=== PATIENT | female | born 2005 | race Caucasian/White ===

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

== ENCOUNTER 2025-01-25 10:11 | Emergency (ER) | payer MEDICAID ==
[~2025-01-25] VITALS: Ht 167.6 cm; Wt 75.2 kg
[2025-01-25 10:19] VITALS: TEMP 98
[2025-01-25 10:35] LABS: MEAN PLATELET VOLUME 6.9 FL (7.4-10.4); RED CELL DISTRIBUTION WIDTH 13.1 % (11.5-14.5)
[2025-01-25 10:51] LABS: CREATININE 0.84 MG/DL (0.40-0.90); TOTAL CARBON DIOXIDE 24.7 MMOL/L (24-32); eCRCL 100 ML/MIN; eGFR 86 ML/MIN
[2025-01-25 12:24] LABS: LEUKOCYTE ESTERASE ,URINE NEGATIVE (Neg); NITRITES, URINE NEGATIVE (Neg); OCCULT BLOOD,URINE LARGE (Neg)
[2025-01-25 12:25] LABS: UA COLLECTION TYPE VOIDED; URINE HCG NEGATIVE (NEG)
[2025-01-25 12:49] LABS: MUCUS STRANDS FEW /LPF (Neg); SQUAMOUS EPITHELIAL CELL,UR MODERATE /LPF (FEW)
[2025-01-25 12:52] LABS: AMORPHOUS PHOSPHATES 2+
--- NOTE | 2025-01-25 13:27 | Physician Documentation ---
History of Present Illness ~ Chief Complaint: Vaginal Bleeding Stated Complaint: PELVIC PAIN Time Seen by MD: :25 OK to notify your PCP?: Yes Source: patient, RN/MD, RN notes reviewed, old records Mode of Arrival: POV Exam Limitations: no limitations HPI 20 year old female with history of menorrhagia seen in bed 09 presents to the emergency department complaining of pain. She states she had an IUD placed recently and this is her first menstrual cycle since having it placed. She complains of nausea and vomiting all night long due to pain from her Copper IUD that she had placed at the [facility] on [address] on 01/06. She states that she is having pain when breathing and that it radiates from her abdomen down her legs. Patient denies any other associated symptoms at this time. Patient denies any other alleviating or exacerbating factors. Last Menstrual Period: Jan 23, 2025 Medication Reconciliation Allergies: Coded Allergies: No Known Allergies (Unverified , 09/09/24) Scheduled Norgestimate-Ethinyl Estradiol (Sprintec 28 Day Tablet), 1 TAB PO DAILY Past Medical History Past Medical History: No Pertinent History Past Surgical History: no surgical history Last Menstrual Period: Jan 23, 2025 Smoking Status: Never smoker Alcohol Use: None Drug Use: none Review of Systems All Other Systems at this time: Reviewed and Negative ROS As stated above in the HPI, otherwise all systems are reviewed and negative. Physical Exam Vital Signs: RN Vital Signs have been reviewed: Yes, Temperature: 98.0, Source: Temporal, Heart Rate: 88, Respiratory Rate: 18, BP: 117/72, Pulse Oximetry: 99, Weight: 75.250 Oxygen Flow Rate: 0 Pulse Oximetry Reflects: adequate oxygenation Physical Exam General: The patient is well developed, well nourished, nontoxic appearing and is in no acute distress. Skin: [place], warm and dry with no rashes. HEENT: Head was normocephalic and atraumatic. Eyes - pupils equal, round, reactive to light and accommodation. Extraocular movements were intact. Conjunctivae were nonicteric. Ears - bilateral tympanic membranes were normal. The mouth and oropharynx were clear with moist mucous membranes. There were no pharyngeal exudates or erythema. Neck: Supple and nontender. There was no jugular venous distention, lymphadenopathy, thyromegaly or masses. Chest: Clear to auscultation bilaterally without wheezes, rales or rhonchi. No accessory muscle use. No dullness to percussion. Heart: Rate regular and rhythmic. S1, S2. No murmurs. Palpation of the chest wall was normal. No rubs or thrills. Abdomen: Diffuse abdominal pain in all quadrants. Positive bowel sounds. No guarding or rebound. No hepatosplenomegaly or palpable masses. Extremities: No cyanosis, clubbing or edema. The patient moves all extremities. Pulses were equal and symmetric. Neurologic: Cranial nerves II-XII were intact. Sensation was intact to light touch throughout. Motor strength was 5/5 in all four extremities. Deep tendon reflexes were intact in both upper and lower extremities. Psychologic: The patient was oriented to person, place and time. The patient demonstrated appropriate judgement and insight. Procedures Procedures Procedure by Dr. Jef Alvarado Ob Ultrasound Date: Jan 26, 2025 Progress Progress Note 2946: The case was discussed with Dr. Alvarado the [employer] architect who recommended the IUD be pulled out 1 cm. Results/Orders Reviewed/noted all lab results: Yes Results/Orders Orders - GRANT ALVARADO MD Cult Urine + [place] [address] (01/25/25 12:53) Ct Abdomen Pelvis (01/25/25 14:30) Completed Orders - GRANT ALVARADO MD Hcg, Ur Ql (01/25/25 10:20) Cbc/Diff (01/25/25 10:20) Lipase (01/25/25 10:20) CMP (01/25/25 10:20) Ua W/Microscopic, Cult If Ind (01/25/25 11:40) Morphine 2mg/Ml Inj. (Morphine Inj.) (01/25/25 13:45) Normal Saline 1000ml (Sodium Chloride 10 (01/25/25 13:45) Ct Abdomen Pelvis (01/25/25 14:30) Iohexol 300mg/Ml 100ml Inj. (Omnipaque-3 (01/25/25 13:52) Vital Signs 01/25/25 01/25/25 01/25/25 01/25/25 10:19 12:10 14:22 15:16 Temp 98.0 Pulse 88 80 Resp 18 16 16 B/P (MAP) 117/72 114/71 (85) Pulse Ox 99 98 O2 Flow Rate 0 0 01/25/25 01/25/25 16:40 17:18 Resp 16 16 Laboratory Tests Test 01/25/25 10:28 01/25/25 11:40 White Blood Count 5.8 Red Blood Count 4.35 Hemoglobin 13.1 Hematocrit 38.8 Mean Corpuscular Volume 89.2 Mean Corpuscular Hemoglobin 30.2 Mean Corpuscular Hemoglobin Concent 33.8 Red Cell Distribution Width 13.1 Platelet Count 254 Mean Platelet Volume 6.9 L Neutrophils (%) (Auto) 76.7 H Lymphocytes (%) (Auto) 17.8 L Monocytes (%) (Auto) 4.8 Eosinophils (%) (Auto) 0.6 Basophils (%) (Auto) 0.1 Neutrophils # (Auto) 4.4 Lymphocytes # (Auto) 1.0 L Monocytes # (Auto) 0.3 Eosinophils # (Auto) 0.0 Basophils # (Auto) 0.0 CBC Comment Sodium Level 142 Potassium Level 4.1 Chloride Level 108 H Carbon Dioxide Level 24.7 Anion Gap 9 Blood Urea Nitrogen 8 Creatinine 0.84 Estimated GFR/1.73 m2 86 BUN/Creatinine Ratio 9.5 L Glucose Level 100 Calcium Level 9.0 Total Bilirubin 0.7 Aspartate Amino Transf (AST/SGOT) 17 Alanine Aminotransferase (ALT/SGPT) 20 Alkaline Phosphatase 78 Total Protein 7.6 Albumin 4.1 Globulin 3.5 Albumin/Globulin Ratio 1.2 Lipase 14 L Chemistry Comments Urine Specimen Description Voided Urine Color Yellow Urine Clarity Cloudy Urine pH 8.5 Urine Specific [place] 1.015 Urine Protein Trace Urine Glucose (UA) Negative Urine Ketones Negative Urine Occult Blood Large H Urine Nitrite Negative Urine Bilirubin Negative Urine Urobilinogen 1.0 Urine Leukocyte Esterase Negative Urine RBC 20-50 Urine WBC 5-10 H Urine Squamous Epithelial Cells Moderate Urine Transitional Epithelial Cells Few Urine Amorphous Phosphates 2+ Urine Bacteria Few Urine Mucus Few Urine Culture Indicated Indicated Volume Urine Centrifuged 10 ml Urine HCG, Qualitative Negative Urine Comment Microbiology Date/Time Source Procedure Growth Status 01/25/25 12:53 Urine Voided Urine Culture - Preliminary Culture received. Resulted Re-Evaluation Re-Evaluation : Re-Evaluation: Improved Progress Patient was seen and examined. Patient was given reassurance. Patient is having severe abdominal pain. Cat scan did not show any perforation of the uterine wall but did show some abnormal implantation of the IUD which was physically bent. Consultation with Ob was obtained. Patient had her IUD removed by 1 cm and there was immediate improvement in resolution of her symptoms. After brief period of observation patient was then discharged home to follow up with OB as needed on outpatient basis. No need for antibiotics at this time. Patient appears well. EKG/XRAY/CT/US/VASC/MRI CT : Impression Exam: CT CT ABDOMEN PELVIS W/ IV CONTRAST History: ABD PAIN, IUD vag pain and bleeding COMPARISON: None Technique: Multidetector spiral CT of the abdomen and pelvis was performed from lung bases to pubic symphysis. Intravenous contrast was administered during this examination. Portal venous imaging was obtained. Axial, coronal and sagittal multiplanar reformats were performed by the technologist on a separate workstation. Radiation Dose : Abdomen/Pelvis: CTDIvol 15 mGy, DLP 826 mGy*cm. CONTRAST: Type of contrast: Omni 300 Contrast injected: 100 mL Findings: Lung Bases: No acute or significant lung base finding. Normal heart size. No pleural or pericardial effusion. Liver: Suggestion of a mass in the left lobe of the liver measuring up to 73 mm with a central scar. Gallbladder and biliary Tree: Unremarkable Spleen: Unremarkable Pancreas: The pancreas is normal in appearance without focal lesions or abnormal enhancement. Adrenal Glands: Unremarkable Kidneys: Right lower pole renal calculus measuring up to 3 mm. No hydronephrosis. Bladder: Unremarkable Bowel: The stomach is grossly normal in appearance. Small bowel and colon are normal in caliber and distribution. Normal appendix is visualized in the right lower quadrant without findings of appendicitis. Ascites: Small amount of free fluid in the pelvis. Lymphadenopathy: No mesenteric, retroperitoneal or periportal lymphadenopathy. Abdominal wall and Mesentery: Unremarkable. Vasculature: The visualized abdominal aorta is normal in size and caliber. Abdominal and pelvic vessels demonstrate normal enhancement. Pelvic Organs: Intrauterine device appears malpositioned with a bent limb. Possible ovarian cysts. Musculoskeletal: No aggressive focal bony lesions, acute fractures or dislocation. IMPRESSION: 1. Malpositioned intrauterine device with a bent limb. Removal and possible replacement is recommended. Free fluid in the pelvis could be physiologic. Does not appear high density. Possible ovarian cysts. Consider further evaluation with pelvic ultrasound. 2. Suggestion of a large left hepatic mass, possibly an FNH. Recommend further evaluation with MRI of the abdomen with contrast. 3. Nonobstructive right lower pole renal calculus. Radiation optimization: All CT scans at this facility use at least one of these dose optimization techniques: Automated exposure control mA and/or kV adjustment per patient size (includes targeted exams where dose is matched to clinical indication) or iterative reconstruction. HS:Y Electronically Signed by:HIPOLITO SONG MD Date & Time: 01/25/25 1515 Medical Decision Making Additional info obtained from: old records Genital Diff Dx:Considerations: Include: Cervicitis, Ectopic , Foreign body, Intrauterine , Menorrhagia, Menometrorrhagia, Menstrual bleeding, Physiologic discharge, , Trauma, UTI, Vaginitis(osis)-Atrophic, Vaginitis, Vaginitis(osis)-Bacterial, Vaginitis(osis)-Candidal, Vaginitis(osis)- Contact, Vaginitis(osis)-Herpes, Vaginitis(osis)-Trich., Other Departure Time of Disposition: 17:18 Disposition: 01 HOME / SELF CARE / HOMELESS Impression: Primary Impression: IUD misplacement Additional Impression: Abdominal pain Qualified Codes: R10.30 - Lower abdominal pain, unspecified Condition: Stable Discharge Instructions: Abdominal Pain, Adult, [id number] Referrals: NO PRIMARY CARE PROVIDER (PCP) Education Educated: Patient Educated regarding: diagnosis, treatment, prognosis, need for follow up Signature Scribe Signature: Scribed for Grant Alvarado MD by Alfredo Love . 01/25/25 13:45 Attestation: The note accurately reflects work and decisions made by me.Grant Alvarado MD 01/25/25 13:26 GRANT ALVARADO MD Jan 25, 2025 13:27 ALFREDO GARCIA Jan 25, 2025 13:45
[2025-01-25] MEDS ORDERED: iohexol 300mg/ml 100ml inj. ONE (13:52)
[2025-01-25] MEDS: normal saline 1000ML IV soln IVB ONE (14:22)
[2025-01-25 15:16] VITALS: BP 114/71; PULSE 80; O2SAT 98
--- NOTE | 2025-01-25 15:17 | RADIOLOGY REPORT ---
Exam: CT CT ABDOMEN PELVIS W/ IV CONTRAST History: ABD PAIN, IUD vag pain and bleeding COMPARISON: None Technique: Multidetector spiral CT of the abdomen and pelvis was performed from lung bases to pubic symphysis. Intravenous contrast was administered during this examination. Portal venous imaging was obtained. Axial, coronal and sagittal multiplanar reformats were performed by the technologist on a separate workstation. Radiation Dose : Abdomen/Pelvis: CTDIvol 15 mGy, DLP 826 mGy*cm. CONTRAST: Type of contrast: Omni 300 Contrast injected: 100 mL Findings: Lung Bases: No acute or significant lung base finding. Normal heart size. No pleural or pericardial effusion. Liver: Suggestion of a mass in the left lobe of the liver measuring up to 73 mm with a central scar. Gallbladder and biliary Tree: Unremarkable Spleen: Unremarkable Pancreas: The pancreas is normal in appearance without focal lesions or abnormal enhancement. Adrenal Glands: Unremarkable Kidneys: Right lower pole renal calculus measuring up to 3 mm. No hydronephrosis. Bladder: Unremarkable Bowel: The stomach is grossly normal in appearance. Small bowel and colon are normal in caliber and d istribution. Normal appendix is visualized in the right lower quadrant without findings of appendicit is. Ascites: Small amount of free fluid in the pelvis. Lymphadenopathy: No mesenteric, retroperitoneal or periportal lymphadenopathy. Abdominal wall and Mesentery: Unremarkable. Vasculature: The visualized abdominal aorta is normal in size and caliber. Abdominal and pelvic vess els demonstrate normal enhancement. Pelvic Organs: Intrauterine device appears malpositioned with a bent limb. Possible ovarian cysts. Musculoskeletal: No aggressive focal bony lesions, acute fractures or dislocation. IMPRESSION: 1. Malpositioned intrauterine device with a bent limb. Removal and possible replacement is recommende d. Free fluid in the pelvis could be physiologic. Does not appear high density. Possible ovarian cy sts. Consider further evaluation with pelvic ultrasound. 2. Suggestion of a large left hepatic mass, possibly an FNH. Recommend further evaluation with MRI of the abdomen with contrast. 3. Nonobstructive right lower pole renal calculus. Radiation optimization: All CT scans at this facility use at least one of these dose optimization mirza hniques: Automated exposure control mA and/or kV adjustment per patient size (includes targeted exams where dose is matched to clinical indication) or iterative reconstruction. HS:Y
[2025-01-25 17:18] VITALS: RESP 16
--- NOTE | 2025-01-25 19:44 | PROGRESS NOTE ---
DATE: 01/25/2025 DICTATING PHYSICIAN: Fady Alvarado MD REQUESTING PHYSICIAN: Dr. Grant Alvarado. REASON FOR CONSULTATION: Cramping pain with a displaced IUD. HISTORY OF PRESENT ILLNESS: The patient is a 20-year-old, nulligravida female who presented to the ER with complaints of severe pelvic cramping pain and excessive vaginal bleeding. The patient reported she had an IUD placed a month ago, at which point, she had severe cramping pain, which diminished after a week or so. However, she states there was a persistent, low-grade cramping pain for the past three weeks which essentially never resolved. However, she recently started her menstrual flow, and the pain was severe enough that she came into the ER. PAST MEDICAL HISTORY: Noncontributory. PAST SURGICAL HISTORY: Noncontributory. OUTPATIENT MEDICATIONS: Denied other than her Paragard IUD. ALLERGIES: No known drug allergies. PHYSICAL EXAM: GENERAL: The patient is alert and oriented, in mild distress due to her cramping pain. VITAL SIGNS: Temperature is 98, respiratory rate of 16, blood pressure 114/71, pulse is 80, and saturating 98% on room air. SIGNIFICANT STUDIES: A CT scan performed in the ER showed a device within the uterus that appeared malpositioned. I discussed the probability with the patient that the IUD was traversing the uterine wall, hence the arm appeared displaced. The patient stated she would like to keep the IUD and did not desire removal of the IUD at this time. Hence, I recommended we retract the IUD slightly in hopes of removing it from the uterine wall to relieve her pain. The risks and benefits of the procedure were extensively discussed with the patient. The patient agreed to proceed. I was strapped around by the patient's nurse for the procedure. A sterile speculum was placed transvaginally. The IUD strings were visualized, and the IUD was retracted approximately 1 cm. The patient reported an initial, left-sided pain and subsequent complete resolution of her cramping pain. ASSESSMENT: A 20-year-old female with IUD traversing the wall causing severe cramping pain which resolved after slight retraction of the IUD. PLAN: The plan at this point is expectant management. The patient may be discharged home, as she is now pain free. The patient will follow up with her produce service team member, for which she is scheduled on 01/27. Fady Alvarado MD TID: [id number] RECEIPT: [id number] CINDY/OMAR
== END 2025-01-25 17:33 | disposition home or self-care (01) ==
LOC: ER 10:12
DX: T83.32XA Displacement of intrauterine contraceptive device, initial encounter (principal); Z79.899 Other long term (current) drug therapy; X58.XXXA Exposure to other specified factors, initial encounter; Y93.89 Activity, other specified; Y92.89 Other specified places as the place of occurrence of the external cause; Y99.8 Other external cause status
CPT/HCPCS: 36415; 74177; 80053; 81001; 81025; 83690; 85025; 87088; 96361; 96374; 96376; 99285; J2270; J7030; Q9967; A6449

== ENCOUNTER 2025-01-26 17:21 | Emergency (ER) | payer MEDICAID ==
[~2025-01-26] VITALS: Ht 167.6 cm; Wt 75.2 kg
[2025-01-26] MEDS: HYDROcodone/acetaminophen 10/325mg tab PO ONE (18:28)
--- NOTE | 2025-01-26 18:46 | Physician Documentation ---
History of Present Illness ~ Chief Complaint: Vaginal pain Stated Complaint: UTERUS PAIN Time Seen by MD: 18:05 Mode of Arrival: POV HPI 20-year-old female returns to the ED with ongoing concerns and vaginal pain secondary to IUD placement. She was here in ED yesterday and had the ID adjusted which temporarily reduced her symptoms however today she returns with increased pain. Denies any fevers denies any vomiting denies any vaginal bleeding Day of Onset: Jan 26, 2025 Last Menstrual Period: Jan 26, 2025 Medication Reconciliation Allergies: Coded Allergies: No Known Allergies (Unverified , 01/26/25) Scheduled Norgestimate-Ethinyl Estradiol (Sprintec 28 Day Tablet), 1 TAB PO DAILY Past Medical History Past Medical History: No Pertinent History Past Surgical History: no surgical history Last Menstrual Period: Jan 26, 2025 Alcohol Use: None Drug Use: none Review of Systems All Other Systems at this time: Reviewed and Negative ROS As stated above in the HPI, otherwise all systems are reviewed and negative. Physical Exam Vital Signs: Temperature: 97.9, Source: Temporal, Heart Rate: 90, Respiratory Rate: 20, BP: 124/85, Pulse Oximetry: 99, Weight: 75.230 Physical Exam General: Alert, no apparent distress. Cardiovascular: Regular rate and rhythm, no murmurs. Genitourinary: Vaginal pain with menstrual cycle bleeding Psychiatric: Normal mood and affect. Skin: Normal color, warm and dry. No edema, no ecchymosis. Procedures Foreign Body Removal (Genital) Removal Attempted By: myself Removed From: vagina Results: successful Tolerated Procedure Well?: yes, no complications Procedure Note IUD removed without difficulty Progress Results/Orders Results/Orders Orders - DONTE BOUCHER NP Pelvic Set Up (01/26/25 ) Completed Orders - DONTE BOUCHER NP Hydrocodone/Apap 10/325 ([place] 10/325mg (01/26/25 18:20) Medications Received in ER Medications (Trade) Dose Ordered Sig/Tex Route PRN Reason Start Time Stop Time Status Last Admin Dose Admin ([place] 10/325mg tab) 1 tab ONCE ONCE PO 01/26/25 18:20 01/26/25 18:21 DC 01/26/25 18:28 1 TAB Vital Signs 01/26/25 01/26/25 01/26/25 01/26/25 17:28 18:28 18:30 18:34 Temp 97.9 Pulse 91 90 Resp 18 16 20 20 B/P (MAP) 129/83 124/85 (98) Pulse Ox 99 99 Medical Decision Making Findings Due to patient's ongoing complications secondary to IUD placement she opted to request I have it removed. I was able to visualize the string and remove it without difficulty. Patient tolerated procedure well. Departure Disposition: HOME / SELF CARE / HOMELESS Impression: Primary Impression: Abdominal pain Additional Impression: Menorrhagia Condition: Stable Additional Instructions: I recommend fallen up with your OBGYN for further evaluation. Do not recommend getting another IUD secondary to your ongoing complications Referrals: NO PRIMARY CARE PROVIDER (PCP) Signature Scribe Signature: y Attestation: Scribed for Donte Boucher [employer] Lead by Donte Peck NP . 01/26/25 18:53 DONTE BOUCHER NP Jan 26, 2025 18:46
[2025-01-26] MEDS: ondansetron 4mg rapidly disintigrating tab PO ONE (19:30)
[2025-01-26 20:00] VITALS: BP 116/68; PULSE 68; RESP 14; TEMP 97.9; O2SAT 99
== END 2025-01-26 20:02 | disposition home or self-care (01) ==
LOC: ER 17:22
DX: N92.0 Excessive and frequent menstruation with regular cycle (principal)
CPT/HCPCS: 58301; 99284

== ENCOUNTER 2025-02-05 08:33 | Emergency (ER) | payer MEDICAID ==
[~2025-02-05] VITALS: Ht 167.6 cm; Wt 74.7 kg
[2025-02-05 09:09] LABS: MEAN PLATELET VOLUME 7.0 FL (7.4-10.4); RED CELL DISTRIBUTION WIDTH 13.0 % (11.5-14.5)
--- NOTE | 2025-02-05 09:17 | Physician Documentation ---
History of Present Illness ~ Chief Complaint: Confused Stated Complaint: CONFUSION Time Seen by MD: 09:02 Primary Medical Doctor: Rebekah Juan Mode of Arrival: POV, Ambulatory HPI 20-year-old female presenting with acute onset dizziness and some mild confusion. Patient states that she woke up this morning and felt very off. She has felt lightheaded and felt like her head was very foggy. Her boyfriend was very concerned and brought her to the ED. Patient states that she felt fine yesterday and worked. 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 Reports that today when she woke up she was lightheaded and felt like the room was slightly spinning. She also states that the left side of her chest is slightly sore but denies any shortness of breath, nausea, vomiting or any other associated symptoms. She denies any drug or alcohol use. Medication Reconciliation Allergies: Coded Allergies: No Known Allergies (Unverified , 01/26/25) Scheduled Norgestimate-Ethinyl Estradiol (Sprintec 28 Day Tablet), 1 TAB PO DAILY Past Medical History Past Medical History: No Pertinent History Past Surgical History: no surgical history Alcohol Use: None Drug Use: none Review of Systems All Other Systems at this time: Reviewed and Negative Physical Exam Vital Signs: Temperature: 98.1, Source: Temporal, Heart Rate: 82, Respiratory Rate: 19, BP: 126/81, Pulse Oximetry: 98, Weight: 74.700 Oxygen Flow Rate: 0 Physical Exam I have reviewed the triage vitals. CONST: Well developed and well nourished. In no acute distress HENT: Head Atraumatic EYES: Pupils are equal, round and reactive to light. Normal conjunctiva NECK: Normal range of motion. Supple. CARDIO: Normal rate and regular rhythm. No murmurs, rubs, or gallops. S1, S2. PULM/CHEST: No respiratory distress. Lungs clear to auscultation. No wheeze ABD: Soft and nontender. Nondistended. Bowel sounds normal. No guarding. : Exam deferred MSK: No edema. No deformity. NEURO: Alert and oriented to person, place and time. Moving all extremities SKIN: Warm and dry. PSYCH: Normal mood and affect. Good eye contact. Progress Results/Orders Results/Orders Orders - MUSA GÓMEZ MD Chest,Single View (02/05/25 10:14) Monitor (02/05/25 08:40) Saline Lock (02/05/25 08:40) Oxygen (02/05/25 08:40) Ct Head (02/05/25 09:14) Completed Orders - MUSA GÓMEZ MD Chest,Single View (02/05/25 10:14) Cbc/Diff (02/05/25 08:40) Electrocardiogram (02/05/25 08:40) Hcg Serum Ql (02/05/25 09:03) CMP (02/05/25 09:04) Drug Screen, Urine (02/05/25 09:04) Ethanol (02/05/25 09:04) TSH (02/05/25 09:04) Hs Troponin I W Calculations (02/05/25 09:13) MG (02/05/25 09:13) Normal Saline 1000ml (0.9% Sodium Chlori (02/05/25 09:15) Ct Head (02/05/25 09:14) Normal Saline 1000ml (0.9% Sodium Chlori (02/05/25 11:05) Ondansetron Inj. (Zofran 4mg/2ml Vial) (02/05/25 11:25) Ua With Microscopic (02/05/25 12:14) Medications Received in ER Medications (Trade) Dose Ordered Sig/Tex Route PRN Reason Start Time Stop Time Status Last Admin Dose Admin Sodium Chloride 1,000 ml @ 1,000 mls/hr ONCE ONCE IV 02/05/25 09:15 02/05/25 10:14 DC 02/05/25 09:40 1,000 MLS/HR Sodium Chloride 1,000 ml @ 1,000 mls/hr ONCE ONCE IV 02/05/25 11:05 02/05/25 12:04 DC 02/05/25 11:10 1,000 MLS/HR (Zofran 4mg/2ml vial) 4 mg ONCE ONCE IV 02/05/25 11:25 02/05/25 11:26 DC 02/05/25 12:15 4 MG Vital Signs 02/05/25 02/05/25 02/05/25 02/05/25 08:35 09:01 09:42 10:59 Temp 98.1 98.2 98.2 Pulse 82 75 89 Resp 18 19 12 17 B/P (MAP) 126/81 115/72 (86) 120/83 (95) Pulse Ox 98 99 100 O2 Flow Rate 0 0 0 Laboratory Tests Test 02/05/25 08:58 02/05/25 09:22 02/05/25 12:14 White Blood Count 4.9 Red Blood Count 4.47 Hemoglobin 13.5 Hematocrit 39.5 Mean Corpuscular Volume 88.4 Mean Corpuscular Hemoglobin 30.3 Mean Corpuscular Hemoglobin Concent 34.3 Red Cell Distribution Width 13.0 Platelet Count 284 Mean Platelet Volume 7.0 L Neutrophils (%) (Auto) 73.0 Lymphocytes (%) (Auto) 21.5 Monocytes (%) (Auto) 4.7 Eosinophils (%) (Auto) 0.6 Basophils (%) (Auto) 0.2 Neutrophils # (Auto) 3.6 Lymphocytes # (Auto) 1.1 Monocytes # (Auto) 0.2 Eosinophils # (Auto) 0.0 Basophils # (Auto) 0.0 CBC Comment Sodium Level 137 Potassium Level 3.9 Chloride Level 104 Carbon Dioxide Level 22.7 L Anion Gap 10 Blood Urea Nitrogen 7 Creatinine 0.71 Estimated GFR/1.73 m2 > 90 BUN/Creatinine Ratio 9.9 L Glucose Level 111 H Calcium Level 9.6 Total Bilirubin 1.0 Aspartate Amino Transf (AST/SGOT) 20 Alanine Aminotransferase (ALT/SGPT) 23 Alkaline Phosphatase 72 Total Protein 8.2 Albumin 4.2 Globulin 4.0 Albumin/Globulin Ratio 1.1 Thyroid Stimulating Hormone (TSH) 1.42 Human Chorionic Gonadotropin, Qual Negative Chemistry Comments Ethyl Alcohol Level < 10 Magnesium Level 2.0 Troponin I High Sensitivity < 4 L Troponin I High Sens Percent Delta Troponin I Hi Sens Absolute Change Urine Specimen Description Cln catch midstream Urine Color Yellow Urine Clarity Slightly cloudy Urine pH 7.5 Urine Specific Mcgehee 1.015 Urine Protein Trace Urine Glucose (UA) Negative Urine Ketones 15 H Urine Occult Blood Negative Urine Nitrite Negative Urine Bilirubin Negative Urine Urobilinogen 1.0 Urine Leukocyte Esterase Negative Urine RBC None seen Urine WBC 5-10 H Urine Squamous Epithelial Cells Moderate Urine Bacteria 1+ Urine Mucus Few Volume Urine Centrifuged 10 ml Urine Comment Urine Opiates Screen Negative Urine Methadone Screen Negative Urine Fentanyl Screen Negative Urine Barbiturates Screen Negative Urine Phencyclidine Screen Negative Urine Amphetamines Screen Negative Urine Benzodiazepines Screen Negative Urine Cocaine Screen Negative Urine Cannabinoids Screen Positive Drug Screen Comment EKG/XRAY/CT/US/VASC/MRI EKG : Additional Comment EKG as interpreted by ED MD indicating normal sinus rhythm with a rate of 85 beats per minute, no ischemia, normal axis Chest X-Ray : Additional Comments CHEST RADIOGRAPH Indication: CP Technique: Single frontal view of the chest was obtained Comparison: None FINDINGS: The cardiac silhouette is unremarkable. The lungs demonstrate no pulmonary airspace consolidation. The pulmonary vasculature is unremarkable. There is no pleural effusion.. There is no pneumothorax. IMPRESSION: No pulmonary airspace consolidation. : Impression CT CT HEAD Indication: dizziness EXAM DATE: 02/05/2025 10:03 AM COMPARISON: None TECHNIQUE: CT of the head without intravenous contrast. RADIATION DOSE: CTDIvol: 49.3 mGy, DLP: 103 mGy*cm FINDINGS: There is no intracranial hemorrhage. There is no extra-axial fluid, mass, mass effect or midline shift. The ventricles are midline and normal in size. Basilar cisterns are patent. Smith-white differentiation is maintained. The paranasal sinuses and mastoids are well-pneumatized. Imaged portion of the orbits are unremarkable. IMPRESSION: No intracranial hemorrhage or mass effect. Medical Decision Making Additional Information 20-year-old female presenting with acute onset dizziness and lightheadedness. Head CT was unremarkable. Her workup is grossly unremarkable as well. This included labs and imaging that returned without any explanation for the symptoms. The patient was given 2 L of IV normal saline as well as 4 mg of IV Zofran which completely resolved her symptoms. I suspect her symptoms may be secondary to a viral syndrome. I advised the pain that this should self resolve. Patient instructed to drink plenty of fluids and get plenty of rest and monitor her symptoms for improvement and resolution. Return to the ED with any acutely worsening symptoms. Departure Disposition: 01 HOME / SELF CARE / HOMELESS Impression: Primary Impression: Viral syndrome Condition: Improved Additional Instructions: Your symptoms were likely secondary to a viral syndrome. Please get plenty of rest and drink plenty of fluids. Monitor her symptoms for improvement and resolution. Follow up with her primary care physician in the next 2-5 days as needed. Please return to the emergency department with any acutely worsening symptoms. Referrals: NO PRIMARY CARE PROVIDER (PCP) Signature Scribe Signature: 1 Attestation: 1 MUSA GÓMEZ MD Feb 05, 2025 09:17
[2025-02-05 09:37] LABS: CREATININE 0.71 MG/DL (0.40-0.90); TOTAL CARBON DIOXIDE 22.7 MMOL/L (24-32); eCRCL 118 ML/MIN; eGFR > 90 ML/MIN
[2025-02-05] MEDS: normal saline 1000ml 1,000 ML IV ONE ×2 (09:40→11:10)
[2025-02-05 09:43] LABS: ETHANOL < 10 MG/DL (<10)
--- NOTE | 2025-02-05 09:48 | ELECTROCARDIOGRAPH REPORT ---
[facility] Test Date: 2025-02-05 Test Time: 08:43:35 Pat Name: JOHN STALLINGS Department: EMERGENCY ROOM Room: Gender: F Rrts: JACINTO : 2005 Requested By: MUSA GÓMEZ Order Number: [id number] Reading MD: Measurements Intervals [place] Rate: 85 P: 60 NV: 130 QRS: 81 QRSD: 87 T: 53 QT: 359 QTc: 427 Interpretive Statements Sinus rhythm Please click the below link to view image of tracing.
[2025-02-05 09:58] LABS: HCG SERUM QL NEGATIVE
--- NOTE | 2025-02-05 10:28 | RADIOLOGY REPORT ---
CT CT HEAD Indication: dizziness EXAM DATE: 02/05/2025 10:03 AM COMPARISON: None TECHNIQUE: CT of the head without intravenous contrast. RADIATION DOSE: CTDIvol: 49.3 mGy, DLP: 103 mGy*cm FINDINGS: There is no intracranial hemorrhage. There is no extra-axial fluid, mass, mass effect or midline shif t. The ventricles are midline and normal in size. Basilar cisterns are patent. Smith-white differentia tion is maintained. The paranasal sinuses and mastoids are well-pneumatized. Imaged portion of the orbits are unremarkabl e. IMPRESSION: No intracranial hemorrhage or mass effect.
--- NOTE | 2025-02-05 10:28 | RADIOLOGY REPORT ---
CHEST RADIOGRAPH Indication: CP Technique: Single frontal view of the chest was obtained Comparison: None FINDINGS: The cardiac silhouette is unremarkable. The lungs demonstrate no pulmonary airspace consolidation. Th e pulmonary vasculature is unremarkable. There is no pleural effusion.. There is no pneumothorax. IMPRESSION: No pulmonary airspace consolidation.
[2025-02-05] MEDS: ondansetron/PF 4mg/2ml inj IV ONE (12:15)
[2025-02-05 13:01] LABS: URINE AMPHETAMINE SCREEN NEGATIVE (Neg); URINE BARBITUATE SCREEN NEGATIVE (Neg); URINE BENZODIAZEPINES SCREEN NEGATIVE (Neg); URINE CANNABINOID SCREEN POSITIVE (Neg); URINE COCAINE SCREEN NEGATIVE (Neg); URINE METHADONE SCREEN NEGATIVE (Neg); URINE OPIATE SCREEN NEGATIVE (Neg); URINE PHENCYCLIDINE SCREEN NEGATIVE (Neg)
[2025-02-05 13:22] LABS: LEUKOCYTE ESTERASE ,URINE NEGATIVE (Neg); NITRITES, URINE NEGATIVE (Neg); OCCULT BLOOD,URINE NEGATIVE (Neg)
[2025-02-05 13:23] LABS: UA COLLECTION TYPE CLN CATCH MIDSTREAM
[2025-02-05 13:29] LABS: SQUAMOUS EPITHELIAL CELL,UR MODERATE /LPF (FEW)
[2025-02-05 13:30] LABS: MUCUS STRANDS FEW /LPF (Neg)
[2025-02-05 13:45] VITALS: BP 106/64; PULSE 66; RESP 16; TEMP 98.5; O2SAT 100
== END 2025-02-05 13:48 | disposition home or self-care (01) ==
LOC: ER 08:34
DX: B34.9 Viral infection, unspecified (principal); Z79.899 Other long term (current) drug therapy
CPT/HCPCS: 36415; 70450; 71045; 80053; 80305; 80320; 81001; 83735; 84443; 84484; 84703; 85025; 93005; 96361; 96374; 99285; J2405; J7030

== ENCOUNTER 2025-05-31 17:14 | Emergency (ER) | payer MEDICAID, SELFPAY ==
[~2025-05-31] VITALS: Ht 167.6 cm; Wt 75.0 kg
[2025-05-31 17:31] VITALS: TEMP 98.6
[2025-05-31 18:30] LABS: HCG SERUM QL NEGATIVE
[2025-05-31] MEDS ORDERED: IBUP-1984 PO (18:39)
[2025-05-31] MEDS ORDERED: ONDA-243 PO (18:39)
--- NOTE | 2025-05-31 18:42 | Physician Documentation ---
History of Present Illness ~ Chief Complaint: Abdominal Pain w/vomiting Stated Complaint: LOWER ABDOMINAL PAIN Time Seen by MD: 17:34 Primary Medical Doctor: Rebekah Juan HPI 20-year-old female who presents to the emergency department with complaint of pelvic pain and requesting screening. Reports that she was on control due to endometriosis however. PERRLA control in the hopes of conceiving. Reports while on her menses at times she gets painful pelvic discomfort. She wonders if she may be at this time and may have an ectopic . She took a home test which was negative. She does report that anti-inflammatory is do help with her pelvic discomfort and she has been follow up by refractory products supervisor. Medication Reconciliation Allergies: Coded Allergies: No Known Allergies (Unverified , 05/31/25) Scheduled Ibuprofen* (Motrin*), 1 TAB PO Q8H Norgestimate-Ethinyl Estradiol (Sprintec 28 Day Tablet), 1 TAB PO DAILY Scheduled PRN ONDANSETRON ODT 4mg tablet (Ondansetron Odt), 1 TAB PO Q6H PRN PRN for nausea/vomiting Past Medical History Past Medical History: No Pertinent History Past Surgical History: no surgical history Alcohol Use: None Drug Use: none Review of Systems All Other Systems at this time: Reviewed and Negative Genitourinary: Reports: pain Physical Exam Vital Signs: Temperature: 98.6, Source: Oral, Heart Rate: 87, Respiratory Rate: 18, BP: 109/72, Pulse Oximetry: 98, Weight: 75.000 Oxygen Flow Rate: 0 General Appearance: alert, WD/WN, mild distress EENT: PERRL/EOMI Neck: normal inspection Respiratory: lungs clear Chest: no accessory muscle use Gastrointestinal: other (pelvic pain) Neurologic: oriented x4 Psychiatric: normal mood/affect Skin: normal color, warm/dry Progress Results/Orders Results/Orders Completed Orders - SADAF HAJI PAC Hcg Serum Ql (05/31/25 17:33) Ketorolac Trometh 15mg/Ml Vial (Toradol (05/31/25 18:40) Ondansetron Disint. Tablet (Zofran Odt T (05/31/25 18:40) Medications Received in ER Medications (Trade) Dose Ordered Sig/Tex Route PRN Reason Start Time Stop Time Status Last Admin Dose Admin (Toradol injection) 15 mg ONCE ONCE IM 05/31/25 18:40 05/31/25 18:41 DC 05/31/25 18:53 15 MG (Zofran ODT tablet) 4 mg ONCE ONCE PO 05/31/25 18:40 05/31/25 18:41 DC 05/31/25 18:51 4 MG Vital Signs 05/31/25 05/31/25 05/31/25 05/31/25 17:31 18:42 18:43 18:44 Temp 98.6 Pulse 87 82 86 Resp 18 16 16 16 B/P (MAP) 109/72 159/72 (101) 159/72 Pulse Ox 98 99 98 O2 Flow Rate 0 0 05/31/25 18:53 Resp 16 Laboratory Tests Test 05/31/25 17:50 Human Chorionic Gonadotropin, Qual Negative Medical Decision Making Additional information obtaine: N/A Findings Examination and history consistent with endometriosis warranting pain management yet we will screen urinalysis for infection in prior to administration of Toradol and Zofran. Urinalysis is reassuring for no infection in hCG Qual negative for. Patient received Toradol injection along with Zofran which is mitigated her pain. Discharged to continue with ibuprofen and follow up with the refractory products supervisor doctor. Urinary Diff Dx:Considerations: Include: Urinary Obstruction, Urolithiasis, UTI Genital Diff Dx:Considerations: Include: Cervicitis, Dsymenorrhea, Ectopic , Hormonal Departure Disposition: 01 HOME / SELF CARE / HOMELESS Impression: Primary Impression: Endometriosis Condition: Improved Discharge Instructions: Endometriosis Additional Instructions: Today in the emergency department you received an injection for discomfort. Your screening was negative. I have sent prescriptions to your pharmacy. Please follow up with your primary care physician and refractory products supervisor doctor for further evaluation. Thank you for visiting [facility] Referrals: NO PRIMARY CARE PROVIDER (PCP) Prescriptions ONDANSETRON ODT 4mg tablet (ONDANSETRON ODT) 4 Mg Tab.rapdis 1 TAB PO Q6H PRN PRN for nausea/vomiting for 4 Days, #16 TAB 0 Refills Prov: SADAF HAJI 05/31/25 Ibuprofen* (Motrin*) 400 Mg Tablet 1 TAB PO Q8H for pain or fever for 10 Days, #30 TAB Prov: SADAF HAJI 05/31/25 Education Educated: Patient Educated regarding: diagnosis, treatment, prognosis, need for follow up Signature Scribe Signature: . Attestation: . SADAF HAJI [facility] May 31, 2025 18:42
[2025-05-31 18:44] VITALS: BP 159/72; PULSE 86; O2SAT 98
[2025-05-31] MEDS: ondansetron 4mg rapidly disintigrating tab PO ONE (18:51)
[2025-05-31 18:53] VITALS: RESP 16
[2025-05-31] MEDS: ketorolac trometh 15mg/ml vial 15 MG/ML ML IM ONE (18:53)
== END 2025-05-31 18:59 ==
LOC: ER 17:14
DX: N80.9 Endometriosis, unspecified (principal); Z79.899 Other long term (current) drug therapy
CPT/HCPCS: 36415; 84703; 96372; 99285; J1885; 99283

== ENCOUNTER 2025-07-02 14:21 | Emergency (ER) | payer MEDICAID ==
[~2025-07-02] VITALS: Ht 167.6 cm; Wt 71.8 kg
[~2025-07-02 14:21] MED LIST changes: +ONDA-243 PO
[2025-07-02 14:28] VITALS: BP 114/73; PULSE 88; RESP 16; O2SAT 98
--- NOTE | 2025-07-02 17:23 | Physician Documentation ---
History of Present Illness ~ Chief Complaint: Abdominal Pain Stated Complaint: COMPLICATIONS Time Seen by MD: 15:10 OK to notify your PCP?: Yes Primary Medical Doctor: Rebekah Juan Source: patient Mode of Arrival: POV Exam Limitations: no limitations HPI Patient arrived by ambulance for lower abdominal pain and cramping as well as some nausea and vomiting. She reports that her abscess she is 4 weeks to the day. LMP was 06/02/2025. Denies any vaginal bleeding. Reports that this is her 1st . Reports that she has a confirmation ultrasound with her OB on 07/26/2025. She is given 1 g Tylenol IV via EMS in route to our facility Last Menstrual Period: Jun 02, 2025 Medication Reconciliation Allergies: Coded Allergies: No Known Allergies (Unverified , 07/02/25) Scheduled Norgestimate-Ethinyl Estradiol (Sprintec 28 Day Tablet), 1 TAB PO DAILY Scheduled PRN ONDANSETRON ODT 4mg tablet (Ondansetron Odt), 1 TAB PO Q6H PRN PRN for nausea/vomiting Past Medical History Past Medical History: No Pertinent History Past Surgical History: no surgical history Last Menstrual Period: Jun 02, 2025 Alcohol Use: None Drug Use: none Review of Systems All Other Systems at this time: Reviewed and Negative Physical Exam Physical Exam Vital Signs: RN Vital Signs have been reviewed: Yes, Temperature: 98.6, Source: Temporal, Heart Rate: 88, Respiratory Rate: 16, BP: 114/73, Pulse Oximetry: 98, Weight: 71.800 Oxygen Flow Rate: 0 Pulse Oximetry Reflects: adequate oxygenation Physical Exam General: Alert, no distress. HEENT: No injection, moist mucous membranes. Neck: Full range of motion. Respiratory: No respiratory distress, equal chest rise and fall. Lungs clear bilaterally Chest: No accessory muscle use. Cardiovascular: Regular rate and rhythm. Gastrointestinal: Nondistended. Nontender to palpation Extremities: Normal range of motion, no deformity. Neurologic: Oriented x4. Psychiatric: Normal mood and affect. Skin: Normal color, warm and dry. Progress Results/Orders Results/Orders Vital Signs 07/02/25 07/02/25 14:28 17:34 Temp 98.6 98.6 Pulse 88 Resp 16 B/P (MAP) 114/73 Pulse Ox 98 O2 Flow Rate 0 Laboratory Tests Test 07/02/25 15:04 HCG Beta Subunit 166 Medical Decision Making Additional information obtaine: family Findings lower abdominal cramping today. She is given Tylenol and route by EMS. Reports is 4 weeks according to her jah on her phone and her last menstrual cycle. Her beta quant today was 166 which could mean that she is in the 2-3 week gestation instead of 4 week gestation. we discussed the importance of trending these numbers to make sure that they are increasing and not decreasing. She has had no vaginal bleeding. She is given strict return instructions should that occur. Physical exam is unremarkable. Upon discharge she reports that her cramping has mostly resolved. Differential Dx:Considerations: Include: -complete, - incomplete, -inevitable, -missed, -threatened, Discom fort of , demise, Vaginal bleeding Departure Disposition: 01 HOME / SELF CARE / HOMELESS Impression: Primary Impression: test positive for normal first in first trimester Additional Impression: Abdominal pain during in first trimester Condition: Stable Discharge Instructions: Abdominal Pain During , [id number] Additional Instructions: Return to the ER if you have any new or worsening symptoms. Today your beta hCG quantitative level was 166. Please follow up with your OB on Friday so you can have a redraw in trend these numbers to make sure that they are increasing, not decreasing. You can take Tylenol for your pain, avoid ibuprofen or naproxen. Referrals: NO PRIMARY CARE PROVIDER (PCP) Education Educated: Patient, Family Educated regarding: diagnosis, treatment, prognosis, need for follow up Additional Comment Medical Screen Exam This patient recieved a medical screening examination. After reviewing the individual's medical complaints with presenting symptoms and performing an appropriate physical examination, it was determined that no immediate life- threatening emergency medical condition is present. This individual is also not a women having contractions. I have reviewed this case [id number] with the LITHOPLATE MAKER, including physical examination, laboratory and imaging results as appropriate. The patient was evaluated [id number] and I agree with the LITHOPLATE MAKER's notes. I agree with the findings, evaluation and disposition. Signature Scribe Signature: . Attestation: Scribed for Catrachita Quintanilla Hob Grinder by Catrachita Peck NP . 07/02/25 17:20 Parts of this note were created using [employer] voice recognition software jimmy [email or web address]. While efforts were made to correct any mistakes made by this voice recognition software program, nonsensical phrases may remain in this note. In addition, there may be errors and syntax, grammar, content and spelling. CATRACHITA QUINTANILLA Jul 02, 2025 17:23 VASU QUINTANA MD Jul 02, 2025 18:36
[2025-07-02 17:34] VITALS: TEMP 98.6
== END 2025-07-02 17:35 | disposition home or self-care (01) ==
LOC: ER 14:21
DX: O26.891 Other specified pregnancy related conditions, first trimester (principal); O21.9 Vomiting of pregnancy, unspecified; R10.20 Pelvic and perineal pain unspecified side; Z3A.01 Less than 8 weeks gestation of pregnancy
CPT/HCPCS: 36415; 84702; 99283

== ENCOUNTER 2025-07-15 08:41 | Emergency (ER) | payer MEDICAID ==
[~2025-07-15] VITALS: Ht 167.6 cm; Wt 70.3 kg
[2025-07-15 08:47] VITALS: TEMP 97.7
[2025-07-15 09:33] LABS: LEUKOCYTE ESTERASE ,URINE NEGATIVE (Neg); NITRITES, URINE NEGATIVE (Neg); OCCULT BLOOD,URINE TRACE-INTACT (Neg); URINE HCG POSITIVE (NEG)
[2025-07-15] MEDS: normal saline 1000ml 1,000 ML IV ONE (09:39)
--- NOTE | 2025-07-15 09:43 | Physician Documentation ---
History of Present Illness Chief Complaint: Vomiting Stated Complaint: COMPLICATIONS Time Seen by MD: 09:14 Primary Medical Doctor: Rebekah Juan HPI Patient is a very pleasant 20-year-old female that presents to the emergency department for evaluation of intractable vomiting x2 days.. Patient reports that she is 6 weeks . Patient reports he has also had lower abdominal cramping. Patient reports he has a significant gynecologic history consisting of endometriosis ovarian cysts. Patient reports her doctor prescribed Zofran and Reglan that have not helped at home. Patient denies any vaginal bleeding at this time. Patient denies fever chills does report nausea vomiting diarrhea at this time. No other symptoms reported at this time. Last Menstrual Period: Jun 02, 2025 Medication Reconciliation Allergies: Coded Allergies: No Known Allergies (Unverified , 07/02/25) Scheduled Norgestimate-Ethinyl Estradiol (Sprintec 28 Day Tablet), 1 TAB PO DAILY Scheduled PRN ONDANSETRON ODT 4mg tablet (Ondansetron Odt), 1 TAB PO Q6H PRN PRN for nausea/vomiting Past Medical History Past Medical History: No Pertinent History Past Surgical History: no surgical history Last Menstrual Period: Jun 02, 2025 Alcohol Use: None Drug Use: none Review of Systems ROS As stated above in the HPI, otherwise all systems are reviewed and negative. Physical Exam Vital Signs: Temperature: 97.7, Source: Temporal, Heart Rate: 86, Respiratory Rate: 15, BP: 102/69, Pulse Oximetry: 99, Weight: 70.300 Physical Exam VITALS: Reviewed and as above. GENERAL: Alert, no apparent distress. MUSCULOSKELETAL No deformities, no edema SKIN: Warm and dry, no rash NEURO: Oriented x4, No motor or sensory deficit PSYCH: Normal mood and affect, no agitation Progress Results/Orders Results/Orders Orders - JUVE MOLINA * Iv Access / Saline Lock * (07/15/25 09:23) Cbc/Diff (07/15/25 09:23) CMP (07/15/25 09:23) Urinalysis, Cult If Indicated (07/15/25 09:23) Hcg Serum Qt (07/15/25 09:23) Normal Saline 1000ml (0.9% Sodium Chlori (07/15/25 09:35) Completed Orders - JUVE MOLINA Hcg, Ur Ql (07/15/25 09:23) Vital Signs 07/15/25 08:47 Temp 97.7 Pulse 86 Resp 15 B/P (MAP) 102/69 Pulse Ox 99 Laboratory Tests Test 07/15/25 09:00 Urine HCG, Qualitative Positive Urine Comment Medical Decision Making Additional information obtaine: other Findings Chief Complaint: Intractable vomiting for 2 days in a 6-week patient. History of Present Illness: 20-year-old female at 6 weeks gestation presented to the emergency department with 2 days of intractable vomiting and lower abdominal cramping. Patient reported nausea, vomiting, and diarrhea without vaginal bleeding, fever, or chills. Significant gynecologic history includes endometriosis and ovarian cysts. Outpatient management with ondansetron and metoclopramide had been ineffective prior to presentation. Differential Diagnosis: Hyperemesis gravidarum Nausea and vomiting of Early complications (ectopic , threatened ) Gastroenteritis Complications related to endometriosis/ovarian cysts Diagnostic Workup Performed: Urine human chorionic gonadotropin: Positive Quantitative beta-hCG: Appropriate for gestational age Complete metabolic panel: Reviewed for electrolyte abnormalities and renal function Liver function tests: Reviewed (aminotransferases typically <200 IU/L in hyperemesis gravidarum) [3] Urinalysis: Reviewed for ketonuria Pelvic ultrasound: Performed to confirm intrauterine , assess for multiple gestation or molar , and evaluate ovarian pathology [1] Assessment: Hyperemesis gravidarum in a 6-week patient with failure of outpatient antiemetic therapy. Emergency Department Management: The patient received intravenous hydration to correct dehydration and electrolyte abnormalities, which are primary goals in hyperemesis gravidarum management. Antiemetic therapy was escalated using a stepwise approach as recommended by the [employer]. [1][3] Antiemetic therapy administered: Ondansetron 4 mg intravenous Metoclopramide 10 mg intravenous Both ondansetron and metoclopramide are recommended second-line therapies for moderate to severe nausea and vomiting in . In comparative studies, metoclopramide and ondansetron demonstrated similar efficacy in symptom reduction, with no significant difference in effectiveness among commonly administered antiemetics for hyperemesis gravidarum. The [employer] [employer] recommends both agents as second-line therapies for persistent symptoms despite first-line treatment. [1-2][4] While ondansetron use before 10 weeks gestation should be individualized due to conflicting data regarding potential increased risk of congenital heart defects when used in the first trimester, the [place] [employer] recommends using ondansetron on a [id number] basis in patients with persistent symptoms. Given this patient's severe symptoms with failure of outpatient therapy, ondansetron administration was appropriate. [1-2] Metoclopramide has demonstrated no increased risk of congenital defects and has favorable safety data in . In a randomized study comparing promethazine and metoclopramide in hospitalized hyperemesis gravidarum patients, both drugs had similar efficacy; however, drowsiness, dizziness, dystonia, and di scontinuation of therapy due to adverse events were less frequent with metoclopramide. [1][5-6] Clinical Course: Patient responded well to intravenous hydration and antiemetic therapy. Patient reports feeling much better with resolution of nausea and vomi ting. Patient is now tolerating oral intake without difficulty. Disposition: Discharge home with close outpatient follow-up. Discharge Plan: Medications: Continue antiemetic therapy as prescribed Vitamin B6 (pyridoxine) 10-25 mg every 8 hours [1] Consider thiamine supplementation 50 mg daily for maintenance until adequate oral intake is established (thiamine therapy prevents Wernicke encephalopathy and refeeding syndrome in hyperemesis gravidarum) [1] Dietary recommendations: Small, frequent, bland meals Avoid triggers including spicy, fatty, acidic foods and strong odors [1] BRAT diet (bananas, rice, applesauce, toast) as tolerated [1] Follow-up: Primary care provider: As scheduled Analytical Lead-team primary care physician: Close follow-up within 48-72 hours for ongoing management of hyperemesis gravidarum and evaluation of lower abdominal cramping in context of endometriosis and ovarian cyst history Pelvic ultrasound results to be reviewed with obstetrics Return precautions discussed: Vaginal bleeding Severe abdominal pain Recurrent or worsening nausea and vomiting Inability to tolerate oral liquids Decreased urination or signs of dehydration Dizziness or lightheadedness Any other concerning symptoms Patient verbalized understanding of discharge instructions and return precautions. Patient agrees with the plan and has no additional questions at this time. Medical Decision-Making Complexity: Moderate to high complexity given multiple diagnoses in the differential, prescription drug management with escalation of antiemetic therapy, coordination of care with obstetrics, and need for close follow-up in early with significant gynecologic history. Differential Dx:Considerations: Other Departure Disposition: 01 HOME / SELF CARE / HOMELESS Impression: Primary Impression: Hyperemesis gravidarum Condition: Stable Discharge Instructions: Hyperemesis Gravidarum, Nausea and Vomiting, Adult Additional Instructions: Your Diagnosis: Hyperemesis gravidarum (severe nausea and vomiting in ) You came to the emergency department with severe nausea and vomiting. You received fluids and medications to help you feel better. You are now ready to go home. What You Need to Do at Home: Stay Hydrated Drink small amounts of fluids throughout the day, even when you feel nauseated Good options include water, clear broth, rome rachele, or sports drinks Sip fluids slowly rather than drinking large amounts at once If you cannot keep fluids down, return to the emergency department Take Your Anti-Nausea Medications Take your medications BEFORE you feel very sick or start vomiting [1] Early treatment can help prevent your symptoms from getting worse [1] Do not wait until you are already vomiting to take your medicine Follow the dosing instructions on your prescription bottles Eating Tips Eat small, frequent meals throughout the day instead of three large meals Choose bland, [id number] foods like bananas, rice, applesauce, and toast [1] Avoid spicy, fatty, or acidic foods [1] Stay away from strong smells and food odors that trigger your nausea [1][3] Eat high-carbohydrate, low-fat foods [3] Follow-Up Appointments You need to see your doctors soon: Your Primary Care Provider: Schedule an appointment as directed Your Analytical Lead-Debt Management Counselor (OB-MEDICAL LIBRARY ASSISTANT): Schedule an appointment within the next few days to monitor your and manage your symptoms When to Return to the Emergency Department Come back to the emergency department right away if you have: Vaginal bleeding Severe abdominal pain Vomiting that will not stop or you cannot keep down any liquids Decreased urination or very dark urine (signs of dehydration) Dizziness or feeling faint Any other symptoms that worry you Important Reminders Your symptoms may improve with treatment, but some nausea is common in early Keep taking your vitamins when you can tolerate them Rest as much as possible Ask for help from family and friends during this difficult time If you have any questions or concerns, contact your OB-MEDICAL LIBRARY ASSISTANT office or return to the emergency department. Referrals: NO PRIMARY CARE PROVIDER (PCP) Education Educated: Patient Educated regarding: diagnosis, treatment, need for follow up Signature Scribe Signature: A Attestation: Scribed for Juve Molina by ARY Waddell . 07/15/25 11:48 JUVE MOLINA Jul 15, 2025 09:43
[2025-07-15 09:44] LABS: UA COLLECTION TYPE CLN CATCH MIDSTREAM
[2025-07-15 09:46] LABS: MUCUS STRANDS MANY /LPF (Neg); SQUAMOUS EPITHELIAL CELL,UR MODERATE /LPF (FEW)
[2025-07-15 10:16] LABS: MEAN PLATELET VOLUME 7.0 FL (7.4-10.4); RED CELL DISTRIBUTION WIDTH 12.8 % (11.5-14.5)
[2025-07-15] MEDS: ondansetron/PF 4mg/2ml inj IV ONE (10:20)
[2025-07-15 10:38] LABS: CREATININE 0.50 MG/DL (0.40-0.90); TOTAL CARBON DIOXIDE 23.7 MMOL/L (24-32); eCRCL 168 ML/MIN; eGFR > 90 ML/MIN
--- NOTE | 2025-07-15 10:41 | RADIOLOGY REPORT ---
OB ULTRASOUND <14 WEEKS: HISTORY: Weeks lower abdominal cramping significant gynecologic history TECHNIQUE: Multiple real-time grayscale sonographic images of the pelvis with duplex Doppler color flow, spectral and M-mode analysis. TRANSDUCERS: Transabdominal COMPARISON: None FINDINGS: The uterus measures 7.6 x 4.1 x 5.6 cm The cervix is not visualized Right ovary measures 2.6 x 1.7 x 1.7 cm with normal Doppler color flow. Left ovary measures 2.2 x 1.6 x 1.8 cm with normal Doppler color flow. Possible early IUP single fetus at 6 weeks and 1 day average ultrasound age based on mean crown-rump length of 0.81 cm and gestational sac size of 1.35 cm heart rate detected at 0 beats per minute. Yolk sac is present. Amniotic fluid is subjectively within normal limits Awa-gestational space: Unremarkable IMPRESSION: Possible early IUP single fetus 6 weeks and 1 day AUA corresponding to an STACY of 03/09/2026. No heart rate is detected at this time. This may be related to early gestational state or spontaneous . Clinical correlation advised. Close clinical and sonographic follow-up advised. Recommend correlation with beta HCG.
[2025-07-15] MEDS: metoclopramide 5 mg/ml inj IV ONE (11:09)
[2025-07-15 11:56] VITALS: BP 129/56; PULSE 86; RESP 16; O2SAT 99
== END 2025-07-15 11:57 | disposition home or self-care (01) ==
LOC: ER 08:42
DX: O21.0 Mild hyperemesis gravidarum (principal); Z79.899 Other long term (current) drug therapy; R10.20 Pelvic and perineal pain unspecified side; Z3A.01 Less than 8 weeks gestation of pregnancy
CPT/HCPCS: 36415; 76801; 80053; 81001; 81025; 84702; 85025; 96361; 96374; 96375; 99285; J2405; J2765; J7030